=== PATIENT | male | born 1950 | race Asian ===

== ENCOUNTER 2019-05-14 07:00 | Outpatient (CLI) | payer MEDICARE, OTHER, SELFPAY ==
[2019-05-14 13:28] LABS: Calculated LDL 89 mg/dL; Cholesterol 172 mg/dL (50-200); Glucose 93 mg/dL (70-100); HDL Cholesterol 53 mg/dL (40-60); Triglyceride 153 mg/dL (30-150)
[2019-05-15 08:32] LABS: PSA, Screening 1.8 ng/ml (0-6.5)
== END 2019-05-14 07:20 ==
PROVIDERS: PCP Emergency Medicine; Visit Provider Nurse Practitioner
DX: Z13.6 Encounter for screening for cardiovascular disorders (principal); N40.1 Benign prostatic hyperplasia with lower urinary tract symptoms; R35.1 Nocturia; Z13.1 Encounter for screening for diabetes mellitus; Z12.5 Encounter for screening for malignant neoplasm of prostate
CPT/HCPCS: 36415; 80061; 82947; 84153

== ENCOUNTER 2020-05-24 00:42 | Outpatient (CLI) | payer MEDICARE, SELFPAY ==
--- NOTE | 2020-05-24 07:30 | DI.CTLCSR_ITS ---
EXAM: CT CHEST LUNG CANCER SCREEN CLINICAL HISTORY: Screening for lung cancer,FORMER SMOKER, Z87.891 TECHNIQUE: Imaging Protocol: Axial computed tomography images with coronal and sagittal reformatted images were created and reviewed COMPARISON: CT ABD PELVIS WITH CONTRAST from 03/07/2015 FINDINGS: Tracheobronchial tree: Patent where visualized. Mediastinum and Leana: No dominant adenopathy or fluid collection. Pulmonary parenchyma: No consolidation or dominant measurable mass. Mild centrilobular emphysema grea test at the upper lobes. Lung Nodules: Stable 5 millimeter nodule left lung base laterally. Pleura: No effusion or pneumothorax. Heart: The heart is not dilated. No coronary artery calcifications are seen. Aorta: Thoracic aorta non-dilated. Upper abdomen: Liver lesions are grossly stable without contrast. Bones: Mild due degenerative changes in the spine.. Soft Tissues: Unremarkable. IMPRESSION: Stable 5 millimeter nodule at the left lung base since 2014. mild emphysematous changes. Lung RADS Cat 2 - Benign Appearance / Behavior: Nodules with a very low likelihood of becoming a clin ically active cancer due to size or lack of growth modifier S Lung-RADS 1.0 CATEGORIES: Category 0 - Prior chest CT exam(s) being located for comparison. Category 1 - Annual screening in 12 months. No nodules or definitely benign nodules. Category 2 - Annual screening in 12 months. Benign appearance. Nodules with low likelihood of becomin g active cancer. Category 3 - 6-month follow-up. Probably benign. Short-term follow-up suggested. Nodules with low lik elihood of becoming active cancer. Category 4A - 3-month follow-up and CT/PET if >8 mm in size. Suspicious finding. Findings which requi re additional testing. Category 4B - Findings which require additional testing and tissue sampling. Suspicious finding. C Added to Any of the Above - History of prior lung cancer screening. S Added to Any of the Above - Significant unexpected other finding. RADIATION DOSE DELIVERED: 88.89mGy.cm Total DLP DATA REPOSITORY: All CT scans at this facility are submitted to the National Radiology Data Registry (NRDR) Dose Index Registry (DIR) with the [employer] (ACR). RADIATION OPTIMIZATION: All CT scans at this facility use at least one of these dose optimization te chniques: automated exposure control; mA and/or kV adjustment per patient size (includes targeted exa ms where dose is matched to clinical indication); or iterative reconstruction.
== END 2020-05-24 01:02 ==
PROVIDERS: PCP Nurse Practitioner; Visit Provider Nurse Practitioner
DX: Z12.2 Encounter for screening for malignant neoplasm of respiratory organs (principal); Z87.891 Personal history of nicotine dependence; R91.1 Solitary pulmonary nodule
CPT/HCPCS: G0297

== ENCOUNTER → 2020-08-15 08:55 | Outpatient (BNVA) | payer MEDICARE, SELFPAY | PROVIDERS: PCP Nurse Practitioner; Referring Provider Nurse Practitioner; Visit Provider Surgery | DX: Z12.11 Encounter for screening for malignant neoplasm of colon (principal); Z86.010 Personal history of colon polyps ==

== ENCOUNTER 2020-08-16 07:20 | Outpatient (CLI) | payer MEDICARE, SELFPAY ==
--- NOTE | 2020-08-16 09:00 | RT.EKG_ITS ---
APPROVED REPORT Exam: Resting ECG Patient Location: O HR:64 bpm ECG Measurements Heart Rate 64 AXIS AZ 165 P 59 QRSd 99 QRS -11 QT 411 T 43 QTc 425 Conclusion Sinus rhythm...normal P axis, V-rate 60- 99
== END 2020-08-16 07:40 ==
PROVIDERS: PCP Nurse Practitioner; Visit Provider Surgery
DX: R07.9 Chest pain, unspecified (principal); D64.9 Anemia, unspecified; F10.10 Alcohol abuse, uncomplicated; D56.0 Alpha thalassemia; Z87.891 Personal history of nicotine dependence
CPT/HCPCS: 93005; 93010

== ENCOUNTER 2020-09-02 02:47 | Outpatient (CLI) | payer MEDICARE, SELFPAY ==
[2020-09-02 12:22] LABS: Abs Immature Grans 0.11 10^3/uL (0.0-0.06); Absolute Basophil Count 0.05 10^3/uL (0.0-0.2); Absolute Eosinophil Count 0.13 10^3/uL (0.0-0.7); Absolute Lymphocyte Count 3.13 10^3/uL (1.2-3.4); Absolute Monocyte Count 0.79 10^3/uL (0.1-0.8); Absolute Neutrophil Count 4.32 10^3/uL (1.2-6.7); Basophils % 0.6; Eosinophils % 1.5; HCT 37.2 % (40.0-50.0); HGB 12.2 g/dL (13.5-17.5); Immature Grans % 1.3; Lymphocytes % 36.7; MCHC 32.8 % (32.0-36.0); MCV 67.1 fL (80-95); MPV 9.2 fL (8.0-11.0); Monocytes % 9.3; Neutrophils % 50.6; Nucleated RBC 0 %; Platelet Count 278 10^3/uL (130-400); RBC 5.54 10^6/uL (4.36-5.78); RDW 15.9 % (11.8-14.1); RDW-SD 35.8 fL; WBC 8.53 10^3/uL (4.4-10.8)
[2020-09-02 12:32] LABS: Anisocytosis 1+; Basophilic Stippling Present; Diff Comment RBC Morph Reviewed; Hypochromasia 3+; Microcytosis 3+; Target Cells 2+
[2020-09-02 12:33] LABS: Poikilocytes 2+
[2020-09-02 12:34] LABS: Prothrombin Time 10.2 sec (9.3-11.0)
[2020-09-02 12:38] LABS: ALT 22 U/L (16-63); AST 14 U/L (15-37); Albumin 3.7 g/dL (3.4-5.0); Alkaline Phosphatase 73 U/L (46-116); Anion Gap 1.5 mmol/L (3-11); BUN 19 mg/dL (7-18); Bilirubin, Total 2.1 mg/dL (0.2-1.0); CO2 28.5 mmol/L (21.0-32.0); CREATININE 0.92 mg/dL (0.70-1.30); Calcium 8.7 mg/dL (8.5-10.1); Chloride 98 mmol/L (98-107); GGT 32 U/L (15-85); Glucose 103 mg/dL (74-106); Potassium 3.3 mmol/L (3.5-5.1); Sodium 128 mmol/L (136-145); Total Protein 7.7 g/dL (6.4-8.2)
[2020-09-04 10:32] LABS: COVID-19 RT-PCR Result NEGATIVE (Negative)
== END 2020-09-02 03:07 ==
PROVIDERS: PCP Nurse Practitioner; Visit Provider Surgery
DX: D64.9 Anemia, unspecified (principal); D56.0 Alpha thalassemia; K21.9 Gastro-esophageal reflux disease without esophagitis; K29.70 Gastritis, unspecified, without bleeding; N40.1 Benign prostatic hyperplasia with lower urinary tract symptoms; R35.1 Nocturia; R17 Unspecified jaundice; Z11.52 Encounter for screening for COVID-19
CPT/HCPCS: 36415; 80053; U0003; 82977; 85025; 85610

== ENCOUNTER 2020-09-06 07:42 | Day surgery (SDC) | payer MEDICARE, SELFPAY ==
[2020-09-06 08:19] VITALS: BP 110/75; PULSE 75; RESP 16; TEMP 36.6; O2SAT 97
[2020-09-06] MEDS: Lactated Ringers 1,000 ML 80 ML IV (08:44)
--- NOTE | 2020-09-06 09:12 | BOWEL_PTH ---
PATIENT: Roshan Emerson LOC: [facility] U#:[id number] AGE/SX: 69/M ROOM: RE09/06/[address]: Cris Holt : 1950 BED: DIS: 09/06/2020 SPEC #: [id number] RECD: 09/06/20 12:29 STATUS: ESTEFANI RESolomon #: [id number] ARASH: 09/06/20 09:[address]: Cris Holt DEPT: Surgical Specimen RECD BY: Sheba Corey ENTERED: 09/06/20 12:30 SP TYPE: Bowel OTHR DR: Jenna Bañuelos, PhD COLLECTION TEAM LEAD Tissues: 1 - BIOPSY BOWEL Procedures: GROSS AND MICRO LEVEL 4 Comments: [id number]
--- NOTE | 2020-09-06 09:20 | W.COLOREPORT ---
Date of service: 09/06/20 Time of Service: 09:20 Colonoscopy Report Date of procedure: 09/06/20 Pre-op diagnosis general: A. polyps Post-op diagnosis procedure note: same Surgeon: Cris Holt Anesthesia proc note operative: GETA and MAC Estimated blood loss (mL): 0 Pathology: other Complications: None Disposition: same day Prep: Miralax/Dulcolax Retraction Time: 9 mins Procedure Description: After informed consent was obtained the patient was taken to the procedure room and placed in a left decubitous position. Monitors were applied and a time out was done. The patients name, date of , procedure, allergies to medications and metal in their body was reviewed. The patient was then sedated. Once sedated and comfortable a rectal exam was done. External exam was normal. Internal exam revealed a normal sphincter tone and no palpable masses. The scope was then introduced and retrofelexed. No internal hemorrhoids were identified. The scope was then advanced to the cecum w/out difficulty. The TI and appendiceal orifice were identified. The prep was good. The scope was then slowly retracted over 9 minutes back into the rectum. Polyps were removed at 5mm flat polyps at 20cc. It was removed with cold biting forcep. All specimen is retrieved and no bleeding is noted. There are no AVMs or diverticula apparent. The mucosa appears pink and healthy. The scope was removed and the patient was woken up and taken back to Same day surgery in stable condition. The patient tolerated the procedure well and there were no immediate complications. Follow up: The patient should not need any further colonoscopies, unless they develop changes in bowel habits or other new gastrointestinal complaints.
--- NOTE | 2020-09-06 09:23 | W.PM.DSUDISC ---
Discharge Plan Disposition Patient Disposition: HOME Condition: Good Discharge Details Reason For Visit: colon scope Attending Provider: Cris Holt Primary Care Provider: Jenna Bañuelos Home Meds and New Rx's Prescriptions: Discontinued polyethylene glycol 3350 17 gram/dose powder 238 g PO ONCE Qty: 238 RF: 0 bisacodyl [Dulcolax (bisacodyl)] 5 mg tablet,delayed release (DR/EC) 5 mg PO ONCE Qty: 4 RF: 0 Discharge Instructions Additional Instructions: Findings: small polyp. This was removed. Follow up: In 2-3 weeks I will send you a letter w/ the patholgy results. I don't feel you require any more colonscopy's. Please call if you develop: fevers >101.5 Nausea or Vomiting Abdominal pain that is not transient DAY SURGERY UNIT POST COLONOSCOPY INSTRUCTIONS 1. Because there will be medication in your system for the next 24 hours, you may feel a little sleepy. Your coordination will be affected. Therefore: a. Do not drive or operate dangerous equipment for 24 hours. b. Do not drink alcohol beverages for 24 hours (not even beer). c. Plan to go home and rest for the day. 2. Generally there are no restrictions on your activity after a day or so has gone by, but you may feel a bit fatigued for a few days. 3 After you arrive home you may have a light meal and return to a normal diet as you can tolerate it without feeling sick to your stomach. 4. After surgery, you may feel pain or discomfort. This should be only transient, but if it persists please contact your doctor. 5. If there are any questions regarding the findings of your procedure, please feel free to contact your doctor. 6. If you are unable to contact your doctor with a problem, contact the hospital at [phone]. 7. Continue all your regular medications unless directed otherwise. I understand the above instructions and have no questions. Signature of Patient or Responsible Adult Escort Date/Time Name of Responsible Adult Escort Signature of Nurse Date/Time Activity:: No lifting over 20 pounds or strenuous activity x24 hours Diet:: Small light meals x24 hours small Discharge Orders Discharge Orders: Discharge Order (Routine); Ordered 09/05/20 Ordered By: Cris Holt DS: Diagnosis Discharge Diagnosis (1) Adenomatous polyp: Status: Acute (2) Alpha thalassemia: Status: Acute (3) Anemia: Status: Acute (4) BPH associated with nocturia: Status: Acute (5) Total bilirubin, elevated: Status: Acute
[2020-09-06 09:50] VITALS: BP 111/74; PULSE 64; RESP 20; TEMP 36.3; O2SAT 96
--- NOTE | 2020-09-06 09:55 | NUR.NOTE ---
0945: Labs noted under orders. Nursing spoke to MD NIMISHA states these can be cancelled, no longer needed. This nurse spoke to Floresita in lab and she will cancel orders.Nursing Note:
== END 2020-09-06 10:17 | disposition home or self-care (01) ==
PROVIDERS: PCP Nurse Practitioner; Visit Provider Surgery
PROC: 0DJD8ZZ Inspection of Lower Intestinal Tract, Via Natural or Artificial Opening Endoscopic (ICD-10-PCS; CPT 45378; principal; 2020-09-06 08:15)
DX: Z12.11 Encounter for screening for malignant neoplasm of colon (principal); Z86.010 Personal history of colon polyps
CPT/HCPCS: 45380; 88305; 82607; 82728; 83540; 83550; J2001

== ENCOUNTER 2021-06-01 01:45 | Outpatient (CLI) | payer MEDICARE, SELFPAY ==
--- NOTE | 2021-06-01 08:00 | DI.CTLCSR_ITS ---
Exam(s) CT CHEST LUNG CANCER SCREEN EXAM: CT CHEST LUNG CANCER SCREEN CLINICAL HISTORY: Screening for lung cancer, hx of nicotine dependence, Z87.891. TECHNIQUE: Imaging Protocol: Low Dose Technique CONTRAST MATERIAL: None COMPARISON: CT CT CHEST LUNG CANCER SCREEN from 05/24/2020 FINDINGS: CHEST: LUNGS: There is continued stability of the previously described 5 millimeter noncalcified nodule in t he lateral left lung base in the anterior basal segment of the left lower lobe. No other significant pulmonary nodule seen in either lung field. There are no pleural effusions. No significant focal f indings in the trachea and mainstem bronchi.. MEDIASTINUM: There is no obvious hilar nor mediastinal adenopathy. CARDIAC: Heart size is normal. There is no pericardial effusion.Caliber of the thoracic aorta is wit hin normal limits. OTHER: Right hepatic lobe cyst remains stable. No new adrenal findings. OSSEOUS: No significant osseous lesions.. IMPRESSION: 1. Continued stable appearance of the 5 millimeter nodule in left lung base. No new lung nodules nor pleural effusions. 2. No obvious intrathoracic adenopathy. 3. Lung RADS Cat 2 - Benign Appearance / Behavior: Nodules with a very low likelihood of becoming a c linically active cancer due to size or lack of growth Lung-RADS 1.0 CATEGORIES: Category 0 - Prior chest CT exam(s) being located for comparison. Category 1 - Annual screening in 12 months. No nodules or definitely benign nodules. Category 2 - Annual screening in 12 months. Benign appearance. Nodules with low likelihood of becomin g active cancer. Category 3 - 6-month follow-up. Probably benign. Short-term follow-up suggested. Nodules with low lik elihood of becoming active cancer. Category 4A - 3-month follow-up and CT/PET if >8 mm in size. Suspicious finding. Findings which requi re additional testing. Category 4B - Findings which require additional testing and tissue sampling. Modifier S- Potentially clinically significant findings (non lung cancer) RADIATION DOSE DELIVERED: 89.54mGy.cm Total DLP 1.84mGy CTDIvol DATA REPOSITORY: All CT scans at this facility are submitted to the National Radiology Data Registry (NRDR) Dose Index Registry (DIR) with the [employer] (ACR). RADIATION OPTIMIZATION: All CT scans at this facility use at least one of these dose optimization te chniques: automated exposure control; mA and/or kV adjustment per patient size (includes targeted exa ms where dose is matched to clinical indication); or iterative reconstruction.
== END 2021-06-01 02:05 ==
PROVIDERS: PCP Nurse Practitioner; Visit Provider Nurse Practitioner
DX: Z87.891 Personal history of nicotine dependence (principal); Z12.5 Encounter for screening for malignant neoplasm of prostate
CPT/HCPCS: 71271

== ENCOUNTER 2022-07-24 02:46 | Outpatient (CLI) | payer MEDICARE, SELFPAY ==
[2022-07-24 09:06] LABS: Abs Immature Grans 0.15 10^3/uL (0.0-0.06); Absolute Basophil Count 0.06 10^3/uL (0.0-0.2); Absolute Eosinophil Count 0.22 10^3/uL (0.0-0.7); Absolute Lymphocyte Count 3.13 10^3/uL (1.2-3.4); Absolute Monocyte Count 0.63 10^3/uL (0.1-0.8); Absolute Neutrophil Count 3.46 10^3/uL (1.2-6.7); Basophils % 0.8; Eosinophils % 2.9; HCT 38.2 % (40.0-50.0); HGB 12.3 g/dL (13.5-17.5); Lymphocytes % 40.9; MCH 21.8 pg (27.0-33.0); MCHC 32.2 % (32.0-36.0); MCV 68 fL (80-95); Monocytes % 8.2; Neutrophils % 45.2; Platelet Count 285 10^3/uL (130-400); RBC 5.63 10^6/uL (4.36-5.78); RDW 15.5 % (11.8-14.1); RDW-SD 35.9 fL; WBC 7.65 10^3/uL (4.4-10.8)
[2022-07-24 09:35] LABS: ALT 27 U/L (16-63); AST 16 U/L (15-37); Albumin 3.4 g/dL (3.4-5.0); Alkaline Phosphatase 78 U/L (46-116); Anion Gap 8.9 mmol/L (3-11); BUN 17 mg/dL (7-18); Bilirubin, Total 1.8 mg/dL (0.2-1.0); CO2 29.1 mmol/L (21.0-32.0); CREATININE 1.1 mg/dL (0.70-1.30); Calcium 8.9 mg/dL (8.5-10.1); Calculated LDL 79 mg/dL (<100); Chloride 101 mmol/L (98-107); Cholesterol 161 mg/dL (<200); Estimated GFR 70.88 (mL/min/1.73m2); Glucose 103 mg/dL (74-106); HDL Cholesterol 57 mg/dL (40-60); Sodium 139 mmol/L (136-145); Total Protein 7.3 g/dL (6.4-8.2); Triglyceride 127 mg/dL (<150)
[2022-07-24 09:40] LABS: Anisocytosis 2+; Diff Comment RBC Morph Reviewed; Microcytosis 2+; Poikilocytes 1+; Polychromasia Present
== END 2022-07-24 02:47 | disposition home or self-care (01) ==
LOC: LBO 02:46
PROVIDERS: PCP Nurse Practitioner Family; Visit Provider Nurse Practitioner Family
DX: D64.9 Anemia, unspecified (principal); N40.1 Benign prostatic hyperplasia with lower urinary tract symptoms; R35.1 Nocturia; Z13.220 Encounter for screening for lipoid disorders; Z78.9 Other specified health status; Z12.5 Encounter for screening for malignant neoplasm of prostate
CPT/HCPCS: 36415; 80053; 80061; 84153; 85025

== ENCOUNTER 2024-08-13 11:03 | Outpatient (REF) | payer MEDICARE, SELFPAY ==
[2024-08-13 13:22] LABS: HCT 39.4 % (40.0-50.0); HGB 12.7 g/dL (13.5-17.5); MCH 22.2 pg (27.0-33.0); MCHC 32.2 % (32.0-36.0); Platelet Count 283 10^3/uL (130-400); RBC 5.72 10^6/uL (4.36-5.78); RDW 16.1 % (11.8-14.1); RDW-SD 38.2 fL; WBC 6.56 10^3/uL (4.4-10.8)
[2024-08-13 13:33] LABS: ALT 20 U/L (16-63); AST 16 U/L (15-37); Albumin 3.7 g/dL (3.4-5.0); Alkaline Phosphatase 84 U/L (46-116); Anion Gap 6.4 mmol/L (3-11); BUN 19 mg/dL (7-18); Bilirubin, Total 1.98 mg/dL (0.2-1.0); CO2 30.6 mmol/L (21.0-32.0); CREATININE 1.2 mg/dL (0.70-1.30); Calcium 8.9 mg/dL (8.5-10.1); Chloride 104 mmol/L (98-107); Estimated GFR 63.07 (mL/min/1.73m2); Glucose 100 mg/dL (74-106); Potassium 4.3 mmol/L (3.5-5.1); Sodium 141 mmol/L (136-145); Total Protein 7.4 g/dL (6.4-8.2)
[2024-08-13 14:11] LABS: MCV 69 fL (80-95)
== END 2024-08-13 11:04 | disposition home or self-care (01) ==
LOC: LBN 11:03
PROVIDERS: PCP Nurse Practitioner Family; Visit Provider Nurse Practitioner Family
DX: Z78.9 Other specified health status (principal); D56.0 Alpha thalassemia; N40.1 Benign prostatic hyperplasia with lower urinary tract symptoms; R35.1 Nocturia
CPT/HCPCS: 80053; 85027

== ENCOUNTER 2024-08-25 03:09 | Emergency (ER) | payer MEDICARE, SELFPAY ==
[2024-08-25 03:21] VITALS: BP 160/97; PULSE 102; RESP 16; TEMP 36.8; O2SAT 97
[2024-08-25 03:23] VITALS: BP 160/97; PULSE 102; RESP 16; TEMP 36.8; O2SAT 97
[2024-08-25] MEDS: Tamsulosin 0.4 MG CAPCR PO (04:17)
--- NOTE | 2024-08-25 04:41 | ED.GENADUL_ITS ---
Discharge Plan Disposition Patient Disposition: Home Condition: Good Discharge Details Clinical Impression: Acute urinary retention Primary Care Provider: Maxx Herrera ED Provider: Mp Hale Home Meds and New Rx's Prescriptions: No Action tamsulosin [Flomax] 0.4 mg capsule 0.4 mg PO HS Qty: 90 4RF Discharge Instructions Instructions: How to Care for Your Bergman Catheter Additional Instructions: This evening you had urinary retention. This is likely from an enlarged prostate. Please take the Flomax as prescribed by your primary care provider. You will be contacted by the urology team for an appointment hopefully this week to have the Bergman catheter removed. If you notice any worsening of your symptoms, or any new symptoms such as vomiting, diarrhea, fever, chills, shortness of breath, chest pain, numbness, weakness, or fainting , please return immediately to the emergency department for reevaluation. Please follow up with your primary care provider as soon as possible for reassessment and reevaluation. As always, it was a pleasure participating in your medical care today. Referrals: Maxx Herrera NP [Primary Care Provider] - Mario Henley MD [ [facility] STAFF PHYSICIAN] - [facility] General Date/Time Provider Initiated Documentation: 08/25/24 03:18 . HPI Narrative: This is a pleasant 73-year-old male with a past medical history of alpha thalassemia, BPH, who presents today for urinary retention. Patient states that for the last 7 hours he has not been able to urinate, but he has felt like he had to urinate. He admits to pressure in the suprapubic region. He denies any history of this in the past. He denies any fever or chills. Of note he was recently prescribed tamsulosin by his PCP, but he has not started this. He denies any blood in his urine. He denies any other complaints at this time. He denies fever chills or flank pain. Related Data Home Medications ?Medication ?Instructions ?Recorded ?Confirmed tamsulosin 0.4 mg capsule (Flomax) 0.4 mg PO HS #90 tab-caps 08/13/24 08/25/24 Previous Rx's ?Medication ?Instructions ?Recorded tamsulosin 0.4 mg capsule (Flomax) 0.4 mg PO HS #90 tab-caps 08/13/24 Allergies Allergy/AdvReac Type Severity Reaction Status Date / Time No Known Allergies Allergy Verified 08/25/24 03:26 General Stated Complaint: Urinary GISELA: 4 Exam Narrative Exam Narrative: 1.Const: Well-nourished, Well-developed, appearing stated age 2.Eyes: PERRL, no conjunctival injection, and symmetrical lids. 3.ENT: Atraumatic external nose and ears. Moist MM. Neck: Symmetric, trachea midline, No thyromegaly. 4.CVS: +S1/S2, Peripheral pulses 2+ and equal in all extremities. Brisk capillary refill in all extremities. 5.RESP: Unlabored respiratory effort. Clear to auscultation bilaterally. No wheezes rales or rhonchi 6.GI: Soft, Nontender/Nondistended, No hepatosplenomegaly. No guarding or rebound. Palpable bladder in the suprapubic/pelvic region. 7.MSK: Normocephalic/Atraumatic, Extremities w/o deformity or ttp No cyanosis or clubbing, Normal movement of all extremities 8.Skin: Warm, Dry. No rashes or lesions. 9.Neuro: nuclear medicine chief technologist II-XII grossly intact. Sensation grossly intact, no focal neurologic deficits. 10.Psych: (AAO) x3. Appropriate mood and affect Course Vital Signs Vital signs: Vital Signs Temperature 36.8 C 08/25/24 03:21 Pulse 102 H 08/25/24 03:21 Respiratory Rate 16 08/25/24 03:21 Blood Pressure 160/97 H 08/25/24 03:21 Pulse Oximetry 97 08/25/24 03:21 Temperature 36.8 C 08/25/24 03:23 Temperature Source Temporal Artery Scan 08/25/24 03:23 Pulse 102 H 08/25/24 03:23 Respiratory Rate 16 08/25/24 03:23 Blood Pressure 160/97 H 08/25/24 03:23 Blood Pressure Position Sitting 08/25/24 03:23 Pulse Oximetry 97 08/25/24 03:23 Oxygen Delivery Method Room Air 08/25/24 03:23 Oxygen Flow Rate 0 08/25/24 03:21 Pain Level 7 08/25/24 03:25 Medical Decision Making This is a pleasant 73-year-old male with a past medical history of alpha thalassemia, BPH, who presents today for urinary retention. Patient states that for the last 7 hours he has not been able to urinate, but he has felt like he had to urinate. He admits to pressure in the suprapubic region. He denies any history of this in the past. He denies any fever or chills. Of note he was recently prescribed tamsulosin by his PCP, but he has not started this. He denies any blood in his urine. He denies any other complaints at this time. He denies fever chills or flank pain. Exam demonstrates well-appearing male, genital exam nontender. Palpable bladder is noted. Suspect greater than a liter. Bergman catheter was placed, patient tolerated this well and had complete resolution of his symptoms. No blood was noted. Dose of Flomax will be given here. Bergman will be transition to a leg bag for home. No evidence of infection on urinalysis. Recommend continue daily Flomax and close follow-up with Dr. Henley for removal of Bergman catheter. Discussed red flag for which to return. I have extensively reviewed the treatment plan and discharge instructions with the patient. I have addressed all patient concerns at this time. The patient was made aware of what symptoms to monitor for that would warrant a return to the emergency department. Discussed the plan with the patient, they demonstrate verbal understanding and agreement with our assessment and plan at this time. The documentation in this chart was dictated using [facility] dictation software. Please excuse any dictation errors. Quality:SDOH Health Related Social Needs: Health related social needs material hardship(utilitie s) (Z59.12) PFSH All Active Problems Acute urinary retention (Acute) Colon polyp, hyperplastic (Chronic ~08/2020) History of tobacco use (Acute) Adenomatous polyp (Acute 02/22/14) Dr. Gene Anna; f/u 6 mos 09/21/14; DR. 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 Esophageal reflux (Acute) Heavy alcohol use (Acute 10/07/13) Medical History Gastritis (02/22/14) Dr. Gene Anna; gastritis and esophagitis per EGD Surgical History History of colonoscopy (~09/06/20) History of esophagogastroduodenoscopy Status post cataract extraction EGD - MAC (02/22/14) Colonoscopy - MAC 2001-neg 02/22- adenomatous polyp; 09/21/14 Extraction of cataract 03/31/15; DR. KESSLER; RIGHT Family History Mother No problems noted. Father No problems noted. Sister Hyperlipidemia Hypertension Sister Hyperlipidemia Hypertension Son , 31 No problems noted. Son , 32 AGE No problems noted. Social History Smoking/Tobacco Use Status: Former Tobacco Use tobacco type: cigarettes Quit Date: 08/12/97 Pack-years: 10 Tobacco: How many years used: 10 Second Hand Exposure: Yes Smoking risk assessment performed?: Yes Alcohol Intake: current Alcohol Intake frequency: a few times a week Alcohol type: beer and hard liquor Drug use: Never Substance use type: does not use Details: alcohol: t-2, 3-4 beers Adopted: No Caregiver/Support person: No Foster care: No Household members: spouse Housing: house Communication Needs: None Education Level: high school Do you need help understanding health information?: Never current occupation: retired Pets and animals: No Sexually active: No Do you think of yourself as: straight/heterosexual Current gender identity: male What is your relationship status?: How often do you talk on the phone with friends or family?: twice per week How often do you get together with friends or relatives?: once per week Do you belong to any clubs or organized social groups?: no Panel score (0-1 are the most socially isolated patients): 2 What type of physical activity do you participate in: none and walking Duration: < 15 minutes/day Special jose manuel needs: No Agree to transfusion: Yes Seatbelt use: always Drive intox or ride w/intox tilt tray driver: No Working smoke detector in home: Yes Carbon monox detector in home: Yes Firearms in home: No Do you feel safe at home: Yes Do you feel safe in your relationship?: Yes
[2024-08-25 05:10] VITALS: BP 165/88; PULSE 105; RESP 16; O2SAT 98
[2024-08-25 05:52] LABS: Bilirubin Negative (Negative); Blood Large (Negative); Clarity Clear (Clear); Glucose Negative (Negative); Ketones 40 mg/dL (Negative); Leukocyte Esterase Negative (Negative); Nitrite Negative (Negative); Urobilinogen 0.2 mg/dL (Up to 0.2); pH 5.5 (5-8)
[2024-08-25 06:01] VITALS: BP 158/87; PULSE 99; RESP 16; TEMP 36.8; O2SAT 98
[2024-08-25 06:14] LABS: Bacteria Rare HPF (Negative); C & S Indicated? No; Casts Negative LPF (Negative); Crystals Negative HPF (Negative); Epithelial Cells Rare HPF (Negative); Mucus Negative (Negative); RBC 20-50 HPF (0-2); WBC 0-2 HPF (0-5)
== END 2024-08-25 06:01 | disposition home or self-care (01) ==
LOC: ER 05:13
PROVIDERS: Emergency Provider Student in an Organized Health Care Education/Training Program; PCP Nurse Practitioner Family
DX: R33.9 Retention of urine, unspecified (principal); Z59.12 Inadequate housing utilities
CPT/HCPCS: 51703; 99283; 81003; 81015

== ENCOUNTER 2024-08-26 13:21 | Emergency (ER) | payer MEDICARE, SELFPAY ==
[2024-08-26 13:31] VITALS: BP 145/77; PULSE 83; RESP 15; TEMP 36.5; O2SAT 96
--- NOTE | 2024-08-26 14:01 | ED.GENADUL_ITS ---
Discharge Plan Disposition Patient Disposition: Home Condition: Stable Discharge Details Clinical Impression: Alves catheter in place Primary Care Provider: Maxx Herrera ED Provider: Mp Shaw Home Meds and New Rx's Prescriptions: Continued tamsulosin [Flomax] 0.4 mg capsule 0.4 mg PO HS Qty: 90 4RF Discharge Instructions Instructions: How to Care for Your Alves Catheter Additional Instructions: You were seen for your Alves catheter in place, I think there was a misunderstanding, you need to have the urology office clinic perform your removal and trial of voluntary voiding of urine. They are going to contact you hopefully this week to arrange your appointment. It is perfectly safe for you to remain with a leg bag, I did provide you with a larger bed bag to use and hanging off the edge of your bed at night. Please return for any severe increase in flank pain especially with fever or nausea or weakness or persistent blood in the Alves catheter bag. Referrals: [facility] [Provider Group] Maxx Herrera, BLEACH SUPERVISOR [Primary Care Provider] - Discharge Data Discharge Date/Time-TO BE ENTERED AT DEPARTURE: 08/26/24 14:13 HPI General Date/Time Provider Initiated Documentation: 08/26/24 13:59 . HPI Narrative: 73 year-old male presents to ED today by POV/ambulating with a chief complaint of requesting he get his alves taken out, placed in ED one day ago- likely misunderstood his d/c paperwork as he is supposed to follow with Urology. Quality described as uncomfortable to move, some red tinge to urine, no radiation to flank pain, fever, clots, cloudy urine in leg bag. Severity is described as mild. Palliating factors include nothing specific attempted. Provoking factors include nothing specific. Events leading up to the incident/Associated Symptoms: Patient had alves placed due to acute urinary retention likely secondary to BPH. Patient not anticoagulated. Related Data Home Medications ?Medication ?Instructions ?Recorded ?Confirmed tamsulosin 0.4 mg capsule (Flomax) 0.4 mg PO HS #90 tab-caps 08/13/24 08/26/24 Previous Rx's ?Medication ?Instructions ?Recorded tamsulosin 0.4 mg capsule (Flomax) 0.4 mg PO HS #90 tab-caps 08/13/24 Allergies Allergy/AdvReac Type Severity Reaction Status Date / Time No Known Allergies Allergy Verified 08/25/24 03:26 General Stated Complaint: Recheck GISELA: 5 Review of Systems All systems reviewed & are unremarkable except as noted in HPI and below Exam Narrative Exam Narrative: GENERAL APPEARANCE: Well-nourished, non-toxic, awake and alert, atraumatic, no acute distress. SKIN: Warm, pink, dry, intact, without rashes/lesions/ulcerations. HEAD: Normocephalic, atraumatic, normal hair distribution for gender/age. EYES: Normal conjunctiva, no exudates on lids/lashes. ENT: Nares patent, no circumoral cyanosis, no facial swelling NECK: Supple, trachea midline, painless cervical ROM. LUNGS/CHEST: Non-labored respirations, normal A/P diameter, symmetrical expansion, no chest wall deformity HEART (CV/PV): No peripheral edema, no JVD. ABDOMEN: Soft, non-distended, no guarding, no CVA tenderness to percussion bilaterallly, no hematuria in leg bag. MSK: Normal ROM, no swelling/deformity to bilateral UEs or LEs, moving all extremities without weakness, no cyanosis, spine midline without tenderness, no rmal curvature. NEURO: Mental Status AAOx4 - alert to person, place, time, events No facial droop, no forehead involvement. Motor: No focal weakness - strength 5/5 in bilateral UEs and LEs, proximal and distal, symmetric. Sensory: sensation intact to light touch globally. Gait normal: patient ambulated without ataxia into ED room. PSYCH: euthymic, cooperative, pleasant, appropriate speech Course Vital Signs Vital signs: Vital Signs Temperature 36.5 C 08/26/24 13:31 Pulse 83 08/26/24 13:31 Respiratory Rate 08/26/24 13:31 Blood Pressure 145/77 H 08/26/24 13:31 Pulse Oximetry 96 08/26/24 13:31 Temperature 36.5 C 08/26/24 13:31 Temperature Source Oral 08/26/24 13:31 Pulse 83 08/26/24 13:31 Respiratory Rate 08/26/24 13:31 Blood Pressure 145/77 H 08/26/24 13:31 Blood Pressure Position Sitting 08/26/24 13:31 Pulse Oximetry 96 01/15/25 13:31 Oxygen Delivery Method Room Air 08/26/24 13:31 Oxygen Flow Rate 0 08/26/24 13:31 Medical Decision Making This dictation utilizes [id number] dictation software and may contain unedited grammatical errors. 73 year-old male presents to ED today by POV/ambulating with a chief complaint of requesting he get his alves taken out, placed in ED one day ago- likely misunderstood his d/c paperwork as he is supposed to follow with Urology. Quality described as uncomfortable to move, some red tinge to urine, no radiation to flank pain, fever, clots, cloudy urine in leg bag. Severity is described as mild. Palliating factors include nothing specific attempted. Provoking factors include nothing specific. Events leading up to the incident/Associated Symptoms: Patient had alves placed due to acute urinary retention likely secondary to BPH. Patients' medical history: [ ]. Family and social history: [ ]. Pertinent exam findings / vital signs include no CVA tenderness percussion bilaterally, no suprapubic tenderness, no hematuria in leg bag. Differential / pathologies of concern include Alves catheter in place. Diagnostic studies of: -None. Interventions of: -None. ED Course/Assessment/Plan: Counseled the patient that he needs to follow-up with urology for his void trial, that he is on the follow-up list and they should be contacting him and I provided him with the number for their office. He has no evidence of worsening infection or hematuria in leg bag. Findings not consistent with pyelonephritis, UTI, obstructed Alves catheter. Disposition of Alves Catheter in Place. Patient verbalized understanding of the plan and return to ED criteria and engaged in shared decision making. Medical Records Medical records reviewed: Yes I reviewed the patient's medical records. Quality:SDOH Health Related Social Needs: Health related social needs material hardship(utilitie s) (Z59.12) PFSH All Active Problems Alves catheter in place (Acute) Acute urinary retention (Acute) Colon polyp, hyperplastic (Chronic ~08/2020) History of tobacco use (Acute) Adenomatous polyp (Acute 02/22/14) Dr. Gene Anna; f/u 6 mos 09/21/14; DR. 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 Esophageal reflux (Acute) Heavy alcohol use (Acute 10/07/13) Medical History Gastritis (02/22/14) Dr. Gene Anna; gastritis and esophagitis per EGD Surgical History History of colonoscopy (~09/06/20) History of esophagogastroduodenoscopy Status post cataract extraction EGD - MAC (02/22/14) Colonoscopy - MAC 2001-neg 02/22- adenomatous polyp; 09/21/14 Extraction of cataract 03/31/15; DR. KESSLER; RIGHT Family History Mother No problems noted. Father No problems noted. Sister Hyperlipidemia Hypertension Sister Hyperlipidemia Hypertension Son , 31 No problems noted. Son , 32 AGE No problems noted. Social History Smoking/Tobacco Use Status: Former Tobacco Use tobacco type: cigarettes Quit Date: 08/12/97 Pack-years: 10 Tobacco: How many years used: 10 Second Hand Exposure: Yes Smoking risk assessment performed?: Yes Alcohol Intake: current Alcohol Intake frequency: a few times a week Alcohol type: beer and hard liquor Drug use: Never Substance use type: does not use Details: alcohol: t-2, 3-4 beers Adopted: No Caregiver/Support person: No Foster care: No Household members: spouse Housing: house Communication Needs: None Education Level: high school Do you need help understanding health information?: Never current occupation: retired Pets and animals: No Sexually active: No Do you think of yourself as: straight/heterosexual Current gender identity: male What is your relationship status?: How often do you talk on the phone with friends or family?: twice per week How often do you get together with friends or relatives?: once per week Do you belong to any clubs or organized social groups?: no Panel score (0-1 are the most socially isolated patients): 2 What type of physical activity do you participate in: none and walking Duration: < 15 minutes/day Special jose manuel needs: No Agree to transfusion: Yes Seatbelt use: always Drive intox or ride w/intox swing driver: No Working smoke detector in home: Yes Carbon monox detector in home: Yes Firearms in home: No Do you feel safe at home: Yes Do you feel safe in your relationship?: Yes PAWSS Have you Been Recently Intoxicated or Drunk Within the Last 30 days?: No Have you Ever Experienced Previous Episodes of Alcohol Withdrawal?: No Have you ever Experienced Withdrawal Seizures?: No Have you ever Experienced Delirium Tremens(DT)s?: No Have you ever undergone Alcohol Rehabilitation Treatment (i.e, inpt ot out patient treatment programs)?: No Have you ever Experienced Blackouts?: No Have you ever Combined Alcohol with other Downers within the last 90 days?: No Have you ever Combined Alcohol with any other Substance of Abuse during the last 90 days?: No Result: 0
== END 2024-08-26 14:13 | disposition home or self-care (01) ==
PROVIDERS: Emergency Provider Physician Assistant; PCP Nurse Practitioner Family
DX: R33.9 Retention of urine, unspecified (principal); Z96.0 Presence of urogenital implants
CPT/HCPCS: 99282

== ENCOUNTER → 2024-08-31 08:32 | Outpatient (BNVA) | payer MEDICARE, SELFPAY | PROVIDERS: PCP Nurse Practitioner Family; Referring Provider Nurse Practitioner Family; Visit Provider Nurse Practitioner Gerontology | DX: R33.8 Other retention of urine (principal); R39.9 Unspecified symptoms and signs involving the genitourinary system; N40.1 Benign prostatic hyperplasia with lower urinary tract symptoms; N13.8 Other obstructive and reflux uropathy | CPT/HCPCS: 51702; 51798; 99213 ==

== ENCOUNTER → 2024-09-16 07:50 | Outpatient (BNVA) | payer MEDICARE, SELFPAY | PROVIDERS: PCP Nurse Practitioner Family; Referring Provider Nurse Practitioner Family; Visit Provider Nurse Practitioner Gerontology | DX: N40.1 Benign prostatic hyperplasia with lower urinary tract symptoms (principal); N13.8 Other obstructive and reflux uropathy; R33.8 Other retention of urine | CPT/HCPCS: 99213 ==

== ENCOUNTER → 2024-09-30 13:10 | Outpatient (BNVA) | payer MEDICARE, SELFPAY | PROVIDERS: PCP Nurse Practitioner Family; Referring Provider Nurse Practitioner Family; Visit Provider Nurse Practitioner Gerontology | DX: N40.1 Benign prostatic hyperplasia with lower urinary tract symptoms (principal); N13.8 Other obstructive and reflux uropathy; R33.8 Other retention of urine | CPT/HCPCS: 51798; 99213 ==

== ENCOUNTER → 2024-11-03 15:12 | Outpatient (BNVA) | payer MEDICARE, SELFPAY | PROVIDERS: PCP Nurse Practitioner Family; Referring Provider Nurse Practitioner Family; Visit Provider Nurse Practitioner Gerontology | DX: N40.1 Benign prostatic hyperplasia with lower urinary tract symptoms (principal); N13.8 Other obstructive and reflux uropathy; R33.8 Other retention of urine; R39.9 Unspecified symptoms and signs involving the genitourinary system | CPT/HCPCS: 51798; 99213 ==

== ENCOUNTER 2024-12-17 16:03 | Outpatient (REF) | payer MEDICARE, SELFPAY ==
--- NOTE | 2024-12-17 13:50 | SKI_PTH ---
PATIENT: Roshan Emerson LOC: [facility] U#:[id number] AGE/SX: 74/M ROOM: RE12/17/[address]: Maxx Luque DNP : 1950 BED: DIS: 12/17/2024 SPEC #: [id number] RECD: 12/18/24 11:43 STATUS: ESTEFANI REQ #: [id number] ARASH: 12/17/24 13:[address]: Maxx Herrera DEPT: Surgical Specimen RECD BY: Sheba Corey Tissues: 1 - SKIN BIOPSY(SHAVE/PUNCH) Procedures: SKIN LEVEL 4 Comments: [id number]
== END 2024-12-17 16:04 | disposition home or self-care (01) ==
LOC: LBN 16:03
PROVIDERS: PCP Nurse Practitioner Family; Visit Provider Nurse Practitioner Family
DX: B07.8 Other viral warts (principal); L98.9 Disorder of the skin and subcutaneous tissue, unspecified
CPT/HCPCS: 88305

== ENCOUNTER → 2025-02-01 15:19 | Outpatient (BNVA) | payer MEDICARE, SELFPAY | PROVIDERS: PCP Nurse Practitioner Family; Referring Provider Nurse Practitioner Family; Visit Provider Nurse Practitioner Gerontology | DX: N40.1 Benign prostatic hyperplasia with lower urinary tract symptoms (principal); N13.8 Other obstructive and reflux uropathy; R33.8 Other retention of urine; R39.9 Unspecified symptoms and signs involving the genitourinary system | CPT/HCPCS: 99214; 51798 ==

== ENCOUNTER → 2025-05-25 15:10 | Outpatient (BNVA) | payer MEDICARE, SELFPAY | PROVIDERS: PCP Nurse Practitioner Family; Referring Provider Nurse Practitioner Family; Visit Provider Nurse Practitioner Gerontology | DX: N40.1 Benign prostatic hyperplasia with lower urinary tract symptoms (principal); N13.8 Other obstructive and reflux uropathy; R39.9 Unspecified symptoms and signs involving the genitourinary system | CPT/HCPCS: 99213; 51798 ==

== ENCOUNTER 2025-05-25 19:31 | Outpatient (CLI) | payer MEDICARE, SELFPAY ==
[2025-05-26 18:00] LABS: PSA, Screening 2.4 ng/mL (<=6.5)
== END 2025-05-25 19:32 | disposition home or self-care (01) ==
LOC: LBO 19:31
PROVIDERS: PCP Nurse Practitioner Family; Visit Provider Nurse Practitioner Gerontology
DX: N40.1 Benign prostatic hyperplasia with lower urinary tract symptoms (principal); R39.9 Unspecified symptoms and signs involving the genitourinary system
CPT/HCPCS: 36415; 51798; 84153; 99213

== ENCOUNTER → 2025-07-27 14:41 | Outpatient (CLI) | payer MEDICARE, SELFPAY ==
--- NOTE | 2025-07-27 14:15 | DI.RAD_ITS ---
Exam(s) XR CHEST 2V PA LATERAL EXAM: XR CHEST 2V PA LATERAL CLINICAL HISTORY: eval for pneumonia, cough, r05.9 TECHNIQUE: 2D digital imaging was performed of the chest. Two images were obtained. PA and lateral views were obtained. COMPARISON: CR CHEST 2 VIEWS PA,LAT from 12/17/2013 FINDINGS: MEDIASTINUM: Normal. HEART: Normal. PULMONARY VASCULATURE: Normal. LUNGS: Clear. PLEURAL SPACE: No pleural effusion or pneumothorax. BONE:Within normal limits for the patient's age. OTHER FINDINGS:Normal. IMPRESSION: No acute pulmonary findings. DATA REPOSITORY: RADIATION DOSE DELIVERED:
== END ==
LOC: DI 14:41
PROVIDERS: PCP Nurse Practitioner Family; Visit Provider Nurse Practitioner Family
DX: R05.9 Cough, unspecified (principal)
CPT/HCPCS: 71046